=== PATIENT | female | born 1980 | race Two or more races ===

== ENCOUNTER 2023-04-23 16:36 | Emergency (ER) | payer MEDICAID, OTHER ==
[~2023-04-23] VITALS: Ht 157.5 cm; Wt 62.0 kg
[2023-04-23 16:47] VITALS: BP 129/80; PULSE 94; RESP 16; TEMP 98.1; O2SAT 96
[2023-04-23] MEDS ORDERED: IBUPROFEN 600 MG TAB PO ONE (22:00)
[2023-04-23] MEDS ORDERED: BACL10TA PO (22:02)
[2023-04-23] MEDS ORDERED: IBUP1TAB5 PO (22:02)
== END 2023-04-23 22:30 | disposition home or self-care (01) ==
LOC: ER 16:36
DX: S13.9XXA Sprain of joints and ligaments of unspecified parts of neck, initial encounter (principal); S33.5XXA Sprain of ligaments of lumbar spine, initial encounter; S83.91XA Sprain of unspecified site of right knee, initial encounter; S93.401A Sprain of unspecified ligament of right ankle, initial encounter; S09.8XXA Other specified injuries of head, initial encounter; Z88.2 Allergy status to sulfonamides; V43.52XA Car driver injured in collision with other type car in traffic accident, initial encounter; Y93.89 Activity, other specified; Y92.488 Other paved roadways as the place of occurrence of the external cause; Y99.8 Other external cause status
CPT/HCPCS: 70450; 72100; 72125; 73562; 73610